=== PATIENT | female | born 1970 | race Caucasian/White ===

== ENCOUNTER 2021-05-09 16:32 | Emergency (ER) | payer BC ==
[2021-05-09 16:42] VITALS: RESP 18; TEMP 98.1
[2021-05-09] MEDS ORDERED: FAMOTIDINE 20 MG TAB PO STA (16:55)
[2021-05-09] MEDS ORDERED: dexAMETHasone 4 MG TAB PO STA (16:55)
--- NOTE | 2021-05-09 16:58 | ED ---
General Adult HPI - General Chief complaint: Allergic Reaction Stated complaint: Possible allergic reaction to wasp sting Time Seen by Provider: 05/09/21 16:44 Source: patient Mode of arrival: ambulatory Limitations: no limitations - History of Present Illness Initial comments: Dictation was produced using [employer] dictation software. please excuse any grammatical, word or spelling errors. Chief Complaint: 51-year-old female presents with facial swelling, throat tingling after multiple wasp stings History of Present Illness: 51-year-old female proximal 1 hour prior to arrival she was trying to do some landscaping. She opened a shed door and there was a wasp nest that she agitated. Patient states she was stung multiple times by several wasps. Patient does not have any known be or wasp ALLERGY. Patient states she felt some tingling in her throat. Denies any changes in her voice. Denies any trouble breathing. No abdominal pain but she does have some nausea. No history of anaphylaxis. The ROS documented in this emergency department record has been reviewed and confirmed by me. Those systems with pertinent positive or negative responses have been documented in the HPI. All other systems are other negative and/or noncontributory. PHYSICAL EXAM: General Impression: Alert and oriented x3, not in acute distress, no voice hoarseness, drooling HEENT: Normocephalic atraumatic, extra-ocular movements intact, pupils equal and reactive to light bilaterally, mucous membranes moist. Cardiovascular: Heart regular rate and rhythm Chest: Able to complete full sentences, no retractions, no tachypnea, clear to auscultation, no wheezing Abdomen: abdomen soft, non-tender, non-distended, no organomegaly Musculoskeletal: Pulses present and equal in all extremities, no peripheral edema Motor: no focal deficits noted Neurological: CN II-XII grossly intact, no focal motor or sensory deficits noted Skin: Intact with no visualized rashes, multiple areas of redness to the extremities, back, neck without any stingers. No urticaria Psych: Normal affect and mood ED course: 51-year-old female presents with some throat tingling after being stung by several wasp on hour prior to arrival. Signs upon arrival are within acceptable limits. Patient not showing signs of anaphylaxis however she does have upper airway involvement. Epinephrine IM indicated. Patient also given ALLERGY cocktail. Patient was observed in the emergency department approximately 2 hours. She is in stable medical condition. Symptoms are improved. Patient given prescription for appendectomy autoinjector. Patient will be discharged. Told to avoid bees and wasps. - Related Data Previous Rx's Medication Instructions Recorded EPINEPHrine (Auto Inject) [Epipen] 0.3 mg IM ONCE PRN #2 pen 05/09/21 Allergies Allergy/AdvReac Type Severity Reaction Status Date / Time No Known Allergies Allergy Verified 05/09/21 16:42 Review of Systems ROS Statement: Those systems with pertinent positive or pertinent negative responses have been documented in the HPI. ROS Other: All systems not noted in ROS Statement are negative. Past Medical History Past Medical History: Fibromyalgia, Hypertension History of Any Multi-Drug Resistant Organisms: None Reported Past Surgical History: Appendectomy, Tonsillectomy Additional Past Surgical History / Comment(s): fallopian tubes removed Past Psychological History: No Psychological Hx Reported Smoking Status: Former smoker Past Alcohol Use History: None Reported Past Drug Use History: None Reported General Exam Limitations: no limitations Course Vital Signs 05/09/21 16:38 Temperature 98.1 F Pulse Rate 101 H Respiratory 18 Rate Blood Pressure 148/103 O2 Sat by Pulse 100 Oximetry Disposition Clinical Impression: Wasp sting Disposition: HOME SELF-CARE Condition: Fair Instructions (If sedation given, give patient instructions): Anaphylaxis (ED) Prescriptions: EPINEPHrine (Auto Inject) [Epipen] 0.3 mg IM ONCE PRN #2 pen PRN Reason: Anaphylaxis Is patient prescribed a controlled substance at d/c from ED?: No Referrals: None,Stated [Primary Care Provider] - 1-2 days
[2021-05-09 18:54] VITALS: BP 153/106; PULSE 108
== END 2021-05-09 18:54 | disposition home or self-care (01) ==
LOC: EC 16:32
DX: T63.461A Toxic effect of venom of wasps, accidental (unintentional), initial encounter (principal); I10 Essential (primary) hypertension; Z87.891 Personal history of nicotine dependence; Y93.H2 Activity, gardening and landscaping
CPT/HCPCS: 99284; 96372; J8540; J0171